=== PATIENT | female | born 1990 | race Caucasian/White ===

== ENCOUNTER 2018-08-31 16:47 | Emergency (ER) | payer SELFPAY ==
[~2018-08-31] VITALS: Ht 172.7 cm; Wt 74.0 kg
[2018-08-31] MEDS ORDERED: ONDANSETRON ODT 4 MG ONE ×2 (17:09→18:44)
[2018-08-31] MEDS ORDERED: ONDANSETRON ODT 4 MG PO ONE ×2 (17:30)
[2018-08-31 17:39] LABS: BASOPHILS # (AUTO) 0.12 x10^3/uL (0-0.1); BASOPHILS % (AUTO) 1 % (0-1); EOSINOPHILS # (AUTO) 0.05 x10^3/uL (0-0.4); EOSINOPHILS % (AUTO) 0 % (1-7); LYMPHOCYTES # (AUTO) 2.71 x10^3/uL (1-3.4); LYMPHOCYTES % (AUTO) 26 % (22-44); MD NO; MEAN CORPUSCULAR HEMOGLOBIN 31.1 pg (27.0-34.8); MEAN CORPUSCULAR HGB CONC 34.1 g/dL (32.4-35.8); MEAN PLATELET VOLUME 8.7 fL (7.4-10.4); MONOCYTES # (AUTO) 0.53 x10^3/uL (0.2-0.8); MONOCYTES % (AUTO) 5 % (2-9); NEUTROPHILS # (AUTO) 7.11 x10^3/uL (1.8-6.8); NEUTROPHILS % (AUTO) 68 % (42-75); PLATELET COUNT 294 x10^3/uL (130-400); RED BLOOD COUNT 4.44 x10^6/uL (3.82-5.3); RED CELL DISTRIBUTION WIDTH 13.1 % (9.6-15.2)
[2018-08-31 17:48] LABS: ANION GAP 8 mmol/L (5-15); CALCIUM 9.2 mg/dL (8.5-10.1); CHLORIDE 106 mmol/L (98-107); CREATININE 0.67 mg/dL (0.55-1.02)
--- NOTE | 2018-08-31 18:57 | NUR ---
ASSUMED CARE OF PATIENT. REPORT GIVEN FROM KELLY BADILLO
[2018-08-31] MEDS ORDERED: SODIUM CHLORIDE FLUSH 10ML SYR IVF ONE ×2 (19:00→19:30)
[2018-08-31 19:16] LABS: MICROSCOPIC NOT IND
[2018-08-31 19:21] LABS: CULTURE INDICATED? NO
[2018-08-31] MEDS ORDERED: SODIUM CHLORIDE 0.9% 1,000ML IVBOLUS ONE (19:30)
[2018-08-31] MEDS ORDERED: METOCLOPRAMIDE 5 MG/ML, 2ML IVPush ONE (19:30)
[2018-08-31] MEDS ORDERED: METOCLOPRAMIDE 5 MG/ML, 2ML ONE (19:41)
--- NOTE | 2018-08-31 20:08 | NUR ---
PT RESTING IN ROOM. REGULAR RESP. NO ACUTE DISTRESS NOTED. WILL CONTINUE TO MONITOR.
[2018-08-31] MEDS ORDERED: LEVO200T PO (20:40)
[2018-08-31 21:21] VITALS: BP 100/55
== END 2018-08-31 21:25 | disposition home or self-care (01) ==
LOC: ED 21:19
DX: O21.1 Hyperemesis gravidarum with metabolic disturbance (principal); E86.9 Volume depletion, unspecified; R55 Syncope and collapse; Z3A.13 13 weeks gestation of pregnancy
CPT/HCPCS: 36415; 80048; 81003; 82040; 85025; 93005; 96361; 96374; 99284; J2765; J7030; Q0162; 82962

== ENCOUNTER 2019-02-13 21:00 | Outpatient (CLI) | payer BC ==
[~2019-02-13] VITALS: Ht 176.5 cm; Wt 104.5 kg
[2019-02-13 21:20] VITALS: BP 130/79
== END 2019-02-13 23:17 | disposition home or self-care (01) ==
LOC: LDOP 21:00
PROVIDERS: ATTEND Obstetrics & Gynecology
DX: O26.893 Other specified pregnancy related conditions, third trimester (principal); R10.9 Unspecified abdominal pain; Z3A.36 36 weeks gestation of pregnancy
CPT/HCPCS: 59025; 99211; G0463

== ENCOUNTER 2019-02-22 21:55 | Outpatient (CLI) | payer BC ==
[~2019-02-22] VITALS: Ht 175.3 cm; Wt 104.0 kg
[2019-02-22 22:43] VITALS: BP 123/80
== END 2019-02-22 23:40 | disposition home or self-care (01) ==
LOC: LDOP 21:55
PROVIDERS: ATTEND Obstetrics & Gynecology
DX: O42.92 Full-term premature rupture of membranes, unspecified as to length of time between rupture and onset of labor (principal); O99.283 Endocrine, nutritional and metabolic diseases complicating pregnancy, third trimester; E89.0 Postprocedural hypothyroidism; Z3A.38 38 weeks gestation of pregnancy
CPT/HCPCS: 59025; 89060; 99211; G0463; Q0114